=== PATIENT | female | born 1970 | race Caucasian/White ===

== ENCOUNTER 2018-09-02 08:39 | Emergency (ER) | payer SELFPAY ==
[~2018-09-02] VITALS: Wt 54.5 kg
[2018-09-02 08:44] VITALS: BP 113/67; PULSE 99; RESP 18
--- NOTE | 2018-09-02 10:21 | ERD ---
ER Documentation Chief Complaint Chief Complaint came back from [facility] , feels tired, no apetite, no pain, wants exam HPI 48-year-old female, presents to the emergency department, complaining of feeling tired after 3 days with diarrhea while the patient was visiting [place]. She states that the last episode of diarrhea was more than 24 hours, she denies abdominal pain, she is requesting a note for work. ROS All systems reviewed and are negative except as per history of present illness. Medications Home Meds Active Scripts Ranitidine Hcl* (Zantac*) 150 Mg Tablet, 150 MG PO BID PRN for EPIGASTRIC PAIN for 5 Days, #10 TAB Prov:JYOTI YOUNG MD 09/02/18 Bismuth Subsalicylate* (Pepto-Bismol*) 262 Mg/15 Ml Oral.susp, 15 ML PO Q6H PRN for DIARRHEA, #1 BOTTLE Prov:JYOTI YOUNG MD 09/02/18 Ciprofloxacin Hcl* (Ciprofloxacin Hcl*) 250 Mg Tablet, 250 MG PO BID for 3 Days, #6 TAB Prov:JYOTI YOUNG MD 09/02/18 Allergies Allergies: Coded Allergies: No Known Allergy (Unverified , 09/02/18) PMhx/Soc Medical and Surgical Hx: pt denies Medical Hx, pt denies Surgical Hx Hx Alcohol Use: No Hx Substance Use: No Hx Tobacco Use: No Smoking Status: Never smoker FmHx Family History: No diabetes, No coronary disease Physical Exam Vitals Vital Signs Date Temp Pulse Resp B/P (MAP) Pulse Ox O2 O2 Flow FiO2 Time Delivery Rate 09/02/18 98.1 99 18 113/67 99 08:44 (82) Physical Exam Const: No acute distress Head: Atraumatic Eyes: Normal Conjunctiva ENT: Normal External Ears, Nose and Mouth. Neck: Full range of motion. No meningismus. Resp: Clear to auscultation bilaterally Cardio: Regular rate and rhythm, no murmurs Abd: Soft, non tender, non distended. Normal bowel sounds Skin: No petechiae or rashes Back: No midline or flank tenderness Ext: No cyanosis, or edema Neur: Awake and alert Psych: Normal Mood and Affect Procedures/MDM Physical exam unremarkable, patient in no distress, hydrated, adequate oral intake, abdomen, soft, nontender, no peritoneal signs. Differential diagnosis include but not limited to: gastrointestinal infection bacterial/viral, UTI, appendicitis, colitis, food poisoning, food intolerance. Low suspicion for acute abdomen Physical examination and clinical presentation consistent most likely with gastroenteritis, most likely traveler's diarrhea. Clinical impression discussed with the patient who agrees with management. The patient is stable to be discharged home, Some side effects of prescribed medications (headache, rash, nausea, vomiting, diarrhea, interactions with other medications) were reviewed. The patient requires a follow up with the primary care provider in the next 48h. If symptoms persist, worsen or new symptoms develop, then patient should return to the ED immediately. Disclaimer: Inadvertent spelling and grammatical errors are likely due to EHR/dictation software use and do not reflect on the overall quality of patient care. Also, please note that the electronic time recorded on this note does not necessarily reflect the actual time of the patient encounter. Departure Diagnosis: Primary Impression: Gastroenteritis Condition: Stable Additional Instructions: Muchas madelyn por [facility] para rodriguez servicio. Esperamos que en rodriguez visita a la david de emergencia rodriguez problema medico haya sido solucionado y que se sienta mucho mejor. Para estar seguros que rodriguez mejoria sigue en proceso, le pedimos el favor de hacer jonathan ryan de seguimiento medico con rodriguez doctor primario en los proximos 2-4 potts. Lleve con usted estos documentos y las medicinas recetadas. Si alvaro sintomas empeoran, NO SE ESPERE, por favor regrese a david de emergencia INMEDIATAMENTE. En stephanie que usted no tenga un mdico de atencin primaria: Llame al mdico o clnica comunitaria de referencia que aparece abajo wayne las horas de consultorio para hacer jonathan ryan para que le vean. CLINICAS: [facility] [phone] [address] [facility] 859 [phone] [address] [facility] 050 [phone] [address] [facility] [phone] [address] [facility] 084 [phone] [facility] [phone] JYOTI BEARDEN MD Sep 02, 2018 10:21
[2018-09-02] MEDS ORDERED: CIPR-193 PO (10:23)
[2018-09-02] MEDS ORDERED: BISM262O23 PO (10:23)
[2018-09-02] MEDS ORDERED: RANI150T35 PO (10:23)
== END 2018-09-02 10:37 | disposition home or self-care (01) ==
LOC: FTE 08:39
DX: K52.9 Noninfective gastroenteritis and colitis, unspecified (principal)
CPT/HCPCS: 99283